=== PATIENT | female | born 2000 | race Caucasian/White ===

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

== ENCOUNTER 2021-01-09 23:04 | Emergency (ER) | payer OTHER ==
[~2021-01-09] VITALS: Ht 154.9 cm; Wt 93.4 kg
[~2021-01-09 23:04] MED LIST: INTESTINEX680 M1 PO; PEPCID AC20 MG PO; ZUPLENZ4 MG PO
== END 2021-01-10 03:58 | disposition home or self-care (01) ==
LOC: EMR PED 23:04
DX: J06.9 Acute upper respiratory infection, unspecified (principal); U07.1 COVID-19

== ENCOUNTER 2021-02-04 13:48 | Emergency (ER) | payer OTHER ==
[~2021-02-04] VITALS: Ht 154.9 cm; Wt 93.0 kg
== END 2021-02-05 | disposition home or self-care (01) ==
LOC: EMR PED 13:48
DX: H10.89 Other conjunctivitis (principal); R05 Cough; R09.81 Nasal congestion; J06.9 Acute upper respiratory infection, unspecified

== ENCOUNTER 2021-05-01 00:18 | Emergency (ER) | payer OTHER ==
[~2021-05-01] VITALS: Ht 154.9 cm; Wt 92.1 kg
[2021-05-01] MEDS ORDERED: CLOTRIMAZOLE-BE15 GM TOP (02:35)
[2021-05-01] MEDS ORDERED: DUI500 PO (02:35)
== END 2021-05-01 02:42 ==
LOC: ER 00:18
DX: L03.311 Cellulitis of abdominal wall (principal); R21 Rash and other nonspecific skin eruption

== ENCOUNTER 2022-03-09 23:22 | Emergency (ER) | payer OTHER ==
[~2022-03-09] VITALS: Ht 157.5 cm; Wt 93.4 kg
[~2022-03-09 23:22] MED LIST changes: +CLOTRIMAZOLE-BE15 GM TOP; +DUI500 PO
[2022-03-10] MEDS ORDERED: BUTALB-ACETAMI1 EACH PO (02:02)
[2022-03-10] MEDS ORDERED: ZYRTEC10 M3 PO (02:02)
== END 2022-03-10 02:14 | disposition home or self-care (01) ==
LOC: ER 23:22
DX: J30.9 Allergic rhinitis, unspecified (principal); Z20.822 Contact with and (suspected) exposure to COVID-19

== ENCOUNTER 2022-09-04 22:29 | Emergency (ER) | payer OTHER ==
[~2022-09-04] VITALS: Ht 157.5 cm; Wt 90.7 kg
[~2022-09-04 22:29] MED LIST changes: +BUTALB-ACETAMI1 EACH PO; +ZYRTEC10 M3 PO
== END 2022-09-04 22:55 | disposition home or self-care (01) ==
LOC: ER 22:29
DX: B35.8 Other dermatophytoses (principal); N64.4 Mastodynia

== ENCOUNTER 2022-12-26 21:22 | Emergency (ER) | payer OTHER ==
[~2022-12-26] VITALS: Ht 154.9 cm; Wt 90.7 kg
== END 2022-12-27 00:18 | disposition home or self-care (01) ==
LOC: ER 21:22
DX: J06.9 Acute upper respiratory infection, unspecified (principal); G44.89 Other headache syndrome; Z20.822 Contact with and (suspected) exposure to COVID-19

== ENCOUNTER 2023-03-29 17:00 | Emergency (ER) | payer OTHER ==
[~2023-03-29] VITALS: Ht 160 cm; Wt 85.7 kg
== END 2023-03-29 19:35 | disposition home or self-care (01) ==
LOC: ER 17:00
DX: R07.89 Other chest pain (principal)

== ENCOUNTER 2023-07-08 17:05 | Emergency (ER) | payer OTHER ==
[~2023-07-08] VITALS: Ht 154.9 cm; Wt 90.7 kg
== END 2023-07-08 22:47 | disposition home or self-care (01) ==
LOC: ER 17:06
DX: N39.0 Urinary tract infection, site not specified (principal); R10.13 Epigastric pain

== ENCOUNTER 2024-01-03 22:49 | Emergency (ER) | payer OTHER ==
[~2024-01-03] VITALS: Ht 157.5 cm; Wt 95.3 kg
[2024-01-04] MEDS ORDERED: hydrOXYzine PAMOATE 50 MG CAPSULE PO STA (02:20)
[2024-01-04] MEDS ORDERED: IBUprofen 800 MG TABLET PO STA (02:20)
[2024-01-04] MEDS ORDERED: hydrOXYzine PAMOATE 50 MG CAPSULE PO ONE (02:26)
[2024-01-04] MEDS ORDERED: IBUprofen 20 MG/ML BLIST.PACK (5ML) PO ONE (02:27)
== END 2024-01-04 02:32 | disposition home or self-care (01) ==
LOC: ER 22:50
DX: M94.0 Chondrocostal junction syndrome [Tietze] (principal)

== ENCOUNTER 2024-02-26 13:58 | Emergency (ER) | payer OTHER ==
[~2024-02-26] VITALS: Ht 154.9 cm; Wt 97.5 kg
[2024-02-26 14:06] VITALS: BP 116/75; O2SAT 98
[2024-02-26] MEDS ORDERED: FAMOTIDINE/PF 20 MG/2 ML VIAL IV ONE (15:45)
[2024-02-26] MEDS ORDERED: METHYLPREDNISOLONE SOD SUCC 125 MG VIAL IV ONE (15:45)
[2024-02-26] MEDS ORDERED: DIPHENHYDRAMINE HCL 50 MG/ML VIAL 1ML IV ONE (15:45)
[2024-02-26] MEDS ORDERED: FAMOTIDINE/PF 20 MG/2 ML VIAL ONE (15:49)
[2024-02-26] MEDS ORDERED: METHYLPREDNISOLONE SOD SUCC 125 MG VIAL ONE (15:49)
[2024-02-26] MEDS ORDERED: DIPHENHYDRAMINE HCL 50 MG/ML VIAL 1ML ONE (15:49)
[2024-02-26 16:23] LABS: HEMATOCRIT 39.1 % (36.0-45.00); HEMOGLOBIN 13.3 g/dL (12.0-15.00); MEAN CELL VOLUME 77.8 fL (80.00-100.00); MEAN CORPUSCULAR HEMOGLOBIN 26.4 pg (27.00-32.0); PLATELET COUNT 208 K/uL (150-450); RED BLOOD COUNT 5.03 M/uL (4.00-6.00); RED CELL DISTRIBUTION WIDTH 14.1 % (11.5-14.5)
[2024-02-26 16:54] LABS: CALCIUM 9.1 mg/dL (8.5-10.1); CREATININE SERUM 0.89 mg/dL (0.55-1.02); GFR 78.6; POTASSIUM 3.65 mEq/L (3.5-5.1)
[2024-02-26] MEDS ORDERED: ALLEGRA ALLERG180 MG PO (17:36)
== END 2024-02-26 17:40 | disposition home or self-care (01) ==
LOC: ER 13:59
PROVIDERS: Emergency Medicine
DX: R21 Rash and other nonspecific skin eruption (principal)

== ENCOUNTER 2024-05-14 23:03 | Emergency (ER) | payer OTHER ==
[~2024-05-14] VITALS: Ht 154.9 cm; Wt 98.4 kg
[~2024-05-14 23:03] MED LIST changes: +ALLEGRA ALLERG180 MG PO
[2024-05-15] MEDS ORDERED: METOCLOPRAMIDE HCL 5 MG/ML VIAL IM STA (01:52)
[2024-05-15] MEDS ORDERED: FAMOtidine 10 MG/ML (4ML VIAL) IV PUSH STA (01:53)
[2024-05-15] MEDS ORDERED: KETOROLAC TROMETHAMINE 30 MG VIAL IV STA (01:53)
[2024-05-15] MEDS ORDERED: DIPHENOXYLATE HCL/ATROPINE 1 UDTAB TABLET PO STA (01:54)
[2024-05-15] MEDS ORDERED: HYOSCYAMINE SULFATE 0.125 MG TAB.SUBL SL ONE (02:00)
== END 2024-05-15 02:21 | disposition home or self-care (01) ==
LOC: ER 23:05 → EMR PED 23:14 → ER 23:14
DX: K21.9 Gastro-esophageal reflux disease without esophagitis (principal)

== ENCOUNTER 2024-08-24 00:18 | Emergency (ER) | payer OTHER ==
[~2024-08-24] VITALS: Ht 154.9 cm; Wt 93.9 kg
[2024-08-24] MEDS ORDERED: KETOROLAC TROMETHAMINE 10 MG TABLET PO STA (03:13)
[2024-08-24 03:32] LABS: HEMATOCRIT 39.6 % (36.0-45.00); HEMOGLOBIN 13.3 g/dL (12.0-15.00); MEAN CELL VOLUME 76.4 fL (80.00-100.00); MEAN CORPUSCULAR HEMOGLOBIN 25.8 pg (27.00-32.0); MEAN CORPUSCULAR HGB CONC 33.7 g/dl (32.0-36.0); PLATELET COUNT 256 K/uL (150-450); RED BLOOD COUNT 5.18 M/uL (4.00-6.00); RED CELL DISTRIBUTION WIDTH 14.8 % (11.5-14.5)
[2024-08-24 04:09] LABS: PH,URINE 6.5 (5.0-8.0); URINE APPEARANCE Clear; URINE BILIRRUBIN Negative (NEGATIVE); URINE BLOOD Negative; URINE COLOR Yellow; URINE GLUCOSE Negative (NEGATIVE); URINE KETONE Negative (NEGATIVE); URINE LEUKOCYTE Negative; URINE NITRATE Negative; URINE PROTEIN Negative (NEGATIVE)
[2024-08-24 04:12] LABS: URINE BACTERIA 20.7 uL (0.0-1933); URINE EPITHELIAL CELLS 2.5 uL (0.0-38.8); URINE RBC 2.9 uL (0.0-20.8)
[2024-08-24 04:14] LABS: URINE WBC 0.7 uL (0.0-23.2)
[2024-08-24 04:23] LABS: CALCIUM 9.3 mg/dL (8.5-10.1); CREATININE SERUM 0.82 mg/dL (0.55-1.02); GFR 86.39; POTASSIUM 3.99 mEq/L (3.5-5.1)
[2024-08-24] MEDS ORDERED: DOLOGESIC-DF 51 EACH PO (05:12)
== END 2024-08-24 05:16 ==
LOC: ER 00:21
PROVIDERS: General Practice
DX: R53.81 Other malaise (principal)

== ENCOUNTER 2024-10-28 08:29 | Emergency (ER) | payer OTHER ==
[~2024-10-28] VITALS: Ht 154.9 cm; Wt 94.8 kg
[~2024-10-28 08:29] MED LIST changes: +DOLOGESIC-DF 51 EACH PO
[2024-10-28 09:04] VITALS: BP 108/55; O2SAT 97
[2024-10-28] MEDS ORDERED: FAMOTIDINE/PF 20 MG in 0.9 % SODIUM CHLORIDE 8 ML IV PUSH STA (09:29)
[2024-10-28] MEDS ORDERED: CEFTRIAXONE SODIUM 1,000 MG VIAL IV ONE (09:30)
[2024-10-28] MEDS ORDERED: FAMOTIDINE/PF 20 MG/2 ML VIAL ONE (09:34)
[2024-10-28] MEDS ORDERED: CEFTRIAXONE SODIUM 1,000 MG VIAL ONE (09:34)
[2024-10-28 10:28] LABS: PH,URINE 5.5 (5.0-8.0); URINE APPEARANCE Cloudy; URINE BILIRRUBIN Negative (NEGATIVE); URINE BLOOD Negative; URINE COLOR Yellow; URINE GLUCOSE Negative (NEGATIVE); URINE KETONE Negative (NEGATIVE); URINE LEUKOCYTE Negative; URINE NITRATE Negative; URINE PROTEIN Negative (NEGATIVE); URINE UROBILINOGEN 0.2 E.U./dl
[2024-10-28 10:31] LABS: URINE BACTERIA 6476.1 uL (0.0-1933); URINE EPITHELIAL CELLS 101.1 uL (0.0-38.8); URINE RBC 37.7 uL (0.0-20.8); URINE WBC 18.9 uL (0.0-23.2)
[2024-10-28 10:36] LABS: BASO % 0.5 % (0.1-1.2); EOS # 0.09 (0.04-0.54); EOS % 0.8 % (0.7-7.0); HEMATOCRIT 40.8 % (34.1-44.9); HEMOGLOBIN 13.6 g/dL (11.2-15.7); LYMPH # 2.53 (1.18-3.74); LYMPH % 22.8 % (19.3-53.1); MEAN CORPUSCULAR HEMOGLOBIN 25.5 pg (25.6-32.2); MONO # 0.68 (0.24-0.82); MONO % 6.1 % (4.7-12.5); NEUT # 7.71 (1.56-6.13); NEUT % 69.5 % (34.0-71.1); PLATELET COUNT 283 K/uL (163-369); RED BLOOD COUNT 5.33 M/uL (3.93-5.22); RED CELL DISTRIBUTION WIDTH 13.3 % (11.6-14.4)
[2024-10-28 10:55] LABS: URINE CAST 0.29 uL (0.0-1.40)
[2024-10-28 11:50] LABS: ALBUMIN 4.1 gm/dL (3.4-5.0); BILIRUBIN TOTAL 0.56 mg/dL (0.3-1.2); CREATININE SERUM 0.86 mg/dL (0.55-1.02); GFR 81.77; GLOBULINA 3.9 G/DL (2.4-3.5); POTASSIUM 3.28 mEq/L (3.5-5.1)
[2024-10-28] MEDS ORDERED: CEPHALEXIN500 MG PO (12:04)
== END 2024-10-28 12:11 | disposition home or self-care (01) ==
LOC: ER 08:59
PROVIDERS: General Practice
DX: N39.0 Urinary tract infection, site not specified (principal)

== ENCOUNTER 2025-01-04 09:08 | Emergency (ER) | payer OTHER ==
[~2025-01-04] VITALS: Ht 162.6 cm; Wt 90.7 kg
[~2025-01-04 09:08] MED LIST changes: +CEPHALEXIN500 MG PO
[2025-01-04] MEDS ORDERED: KETOROLAC TROMETHAMINE 60 MG VIAL IM STA (09:38)
[2025-01-04] MEDS ORDERED: ACETAMINOPHEN 500 MG GEL..CAP PO STA (09:39)
[2025-01-04] MEDS ORDERED: ORPHENADRINE CITRATE 30 MG/ML AMPUL IM STA (09:39)
[2025-01-04] MEDS ORDERED: ORPHENADRINE CITRATE 30 MG/ML AMPUL ONE (09:41)
[2025-01-04] MEDS ORDERED: ACETAMINOPHEN 500 MG GEL..CAP PO ONE (09:42)
[2025-01-04] MEDS ORDERED: KETOROLAC TROMETHAMINE 60 MG VIAL IM ONE (09:42)
== END 2025-01-04 10:40 | disposition home or self-care (01) ==
LOC: ER 09:31
DX: T14.8XXA Other injury of unspecified body region, initial encounter (principal); V49.9XXA Car occupant (driver) (passenger) injured in unspecified traffic accident, initial encounter; Y93.89 Activity, other specified; Y92.413 State road as the place of occurrence of the external cause; Y99.9 Unspecified external cause status; M62.830 Muscle spasm of back